=== PATIENT | female | born 1995 | race African-American/Black ===

== ENCOUNTER 2022-08-04 18:10 | Emergency (ER) | payer OTHER ==
--- NOTE | 2022-08-04 18:20 | NUR ---
PATIENT LEFT WITHOUT BEING SEEN BY DR. MALHOTRA. NO FURTHER CARE PROVIDED FOR PATIENT.
--- NOTE | 2022-08-04 18:23 | NUR ---
RECEIVED CALL FROM ER ADMITTING THAT PATIENT LEFT WITHOUT BEING SEEN BY DR. MALHOTRA. NO FURTHER CARE PROVIDED FOR PATIENT.
== END 2022-08-04 18:23 | disposition left against medical advice (07) ==
LOC: MED 18:10
DX: R10.9 Unspecified abdominal pain (principal); Z53.21 Procedure and treatment not carried out due to patient leaving prior to being seen by health care provider